=== PATIENT | female | born 1995 | race Hispanic/Latino ===

== ENCOUNTER 2018-02-23 22:35 | Emergency (ER) | payer BC ==
[~2018-02-23] VITALS: Ht 149.9 cm; Wt 49.9 kg
[2018-02-23] MEDS ORDERED: KETOROLAC TROMETHAMINE 30 MG/ML VIAL IV STA (23:52)
[2018-02-24] MEDS ORDERED: DIPHENHYDRAMINE HCL INJ 50 MG/ML VIAL IV ONE
[2018-02-24] MEDS ORDERED: SODIUM CHLORIDE 0.9% 1000ML 1,000 ML IV SCH
[2018-02-24] MEDS ORDERED: DEXAMETHASONE SOD PHOS 10 MG/1 ML VIAL IV ONE
[2018-02-24] MEDS ORDERED: METOCLOPRAMIDE HCL 10 MG/2ML VIAL IV ONE
[2018-02-24 01:17] VITALS: BP 119/86
== END 2018-02-24 01:18 | disposition home or self-care (01) ==
LOC: FSED 22:35
DX: G43.119 Migraine with aura, intractable, without status migrainosus (principal)
CPT/HCPCS: 81003; 81025; 93005; 99283